=== PATIENT | female | born 1995 | race Hispanic/Latino ===

== ENCOUNTER 2021-05-27 20:22 | Emergency (ER) | payer SELFPAY ==
[~2021-05-27] VITALS: Ht 154.9 cm; Wt 68.0 kg
[2021-05-27] MEDS ORDERED: ACETAMINOPHEN500 MG PO (21:12)
[2021-05-27] MEDS ORDERED: IBUPROFEN IB200 MG PO (21:12)
[2021-05-27] MEDS ORDERED: AUGMENTIN 875-1 EACH PO (21:12)
== END 2021-05-27 21:45 | disposition home or self-care (01) ==
LOC: FSED 20:27
DX: J03.90 Acute tonsillitis, unspecified (principal); B96.89 Other specified bacterial agents as the cause of diseases classified elsewhere
CPT/HCPCS: 83518; 99282

== ENCOUNTER 2022-04-20 20:34 | Emergency (ER) | payer OTHER ==
[~2022-04-20] VITALS: Ht 154.9 cm; Wt 68.0 kg
[~2022-04-20 20:34] MED LIST: ACETAMINOPHEN500 MG PO; AUGMENTIN 875-1 EACH PO; IBUPROFEN IB200 MG PO
[2022-04-20 21:10] LABS: BASOPHILS % 0.4 % (0.0-1.0); EOSINOPHILS # (AUTO) 0.1 (0.0-0.4); EOSINOPHILS % 1.1 % (0.0-6.0); HEMATOCRIT 39.4 % (34.2-44.1); HEMOGLOBIN 12.7 g/dL (12.0-16.0); LYMPHOCYTES # (AUTO) 2.5 (1.0-3.2); LYMPHOCYTES % 26.3 % (18.0-39.1); MEAN CORPUSCULAR HEMOGLOBIN 28.7 pg (28-32); MEAN CORPUSCULAR HGB CONC 32.2 g/dL (31-35); MEAN CORPUSCULAR VOLUME 88.9 fL (81-99); MONOCYTES # (AUTO) 0.7 (0.2-0.8); MONOCYTES % 6.9 % (4.4-11.3); NEUTROPHILS # (AUTO) 6.2 (2.1-6.9); NEUTROPHILS % 65.1 % (38.7-80.0); PLATELET COUNT 290 x10e3/uL (140-360); RED BLOOD COUNT 4.43 x10e6/uL (3.6-5.1); RED CELL DISTRIBUTION WIDTH 12.6 % (11.7-14.4)
[2022-04-20 21:28] LABS: ALBUMIN 3.7 g/dL (3.5-5.0); ANION GAP 10.3 mmol/L (8-16); CALCIUM 8.8 mg/dL (8.4-10.2); CREATININE, SERUM 0.72 mg/dL (0.57-1.11); POTASSIUM 3.3 mmol/L (3.5-5.1)
[2022-04-20 21:42] LABS: CLARITY,URINE SL CLOUDY (CLEAR); COLOR,URINE STRAW (YELLOW); KETONES,URINE NEGATIVE (NEGATIVE); LEUKOCYTE ESTERASE ,URINE NEGATIVE (NEGATIVE); NITRITE,URINE NEGATIVE (NEGATIVE); PROTEIN,URINE DIPSTICK NEGATIVE (NEGATIVE); URINE UROBILINOGEN 0.2 mg/dL (0.2 - 1)
[2022-04-20 21:58] LABS: BACTERIA,URINE MODERATE /HPF; EPITHELIAL CELLS,URINE MODERATE /LPF
[2022-04-20] MEDS ORDERED: MACROBID 100 M100 MG PO (22:31)
== END 2022-04-20 22:46 | disposition home or self-care (01) ==
LOC: ER 20:42
DX: O03.9 Complete or unspecified spontaneous abortion without complication (principal)
CPT/HCPCS: 36415; 76805; 76817; 80053; 81001; 84702; 85025; 86900; 99283